=== PATIENT | male | born 1950 | race Caucasian/White ===

== ENCOUNTER 2018-09-19 22:21 | Emergency (ER) | payer MEDICARE ==
[~2018-09-19] VITALS: Ht 188 cm; Wt 90.7 kg
[2018-09-19 22:55] LABS: BASOPHILS ABSOLUTE AUTO 0.05 K/mm3 (0.00-0.23); BASOPHILS PERCENT AUTO 0 % (0-2); EOSINOPHILS PERCENT AUTO 1 % (0-6); Hematocrit 35.1 % (37.0-53.0); Hemoglobin 11.8 g/dL (13.5-17.5); IMMATURE GRAN ABSOLUTE AUTO 0.04 K/mm3 (0.00-0.10); IMMATURE GRAN PERCENT AUTO 0 % (0-1); LYMPHOCYTES ABSOLUTE AUTO 4.92 K/mm3 (0.84-5.20); LYMPHOCYTES PERCENT AUTO 33 % (21-46); MONOCYTES ABSOLUTE AUTO 1.48 K/mm3 (0.16-1.47); MONOCYTES PERCENT AUTO 10 % (4-13); Mean Corpuscular HGB 29.6 pg (26.0-34.0); Mean Corpuscular HGB Conc 33.6 g/dL (31.5-36.5); Mean Corpuscular Volume 88 fL (80-100); Mean Platelet Volume 9.6 fL (9.1-12.4); NEUTROPHILS ABSOLUTE AUTO 8.26 K/mm3 (1.96-9.15); NEUTROPHILS PERCENT AUTO 55 % (41-73); Platelet Count 245 K/mm3 (150-400); RDW Coefficient Variation 12.7 % (11.7-14.2); RDW Standard Deviation 41.5 fL (35.1-46.3); Red Blood Cell Count 3.98 M/mm3 (4.30-5.90); White Blood Cell Count 14.95 K/mm3 (4.00-11.30)
[2018-09-19 23:28] LABS: Albumin, Blood 4.4 g/dL (3.4-5.0); Albumin/Globulin Ratio 1.4 (0.8-1.8); Bilirubin, Total 0.4 mg/dL (0.1-1.0); Bun/Creatinine Ratio 34.8 (12.0-20.0); Calcium, Blood 8.9 mg/dL (8.5-10.1); Creatinine, Blood 1.78 mg/dL (0.60-1.20); Globulin, Blood 3.1 g/dL (2.2-4.0); Potassium, Blood 4.6 mmol/L (3.5-5.5); Total Protein, Blood 7.5 g/dL (6.4-8.2)
[2018-09-20 02:05] LABS: Calcium, Ionized (POC) 1.16 mmol/L (1.10-1.46); Chloride (POC) 106 mmol/L (98-108); Creatinine (POC) 1.7 mg/dL (0.8-1.3); Glucose (ISTAT POC) 115 mg/dL (70-99); Hemoglobin (POC) 10.2 g/dL (13.5-17.5); Potassium (POC) 4.2 mmol/L (3.5-5.5); Sodium (POC) 138 mmol/L (135-148); Total CO2 (POC) 20 mmol/L (21-32)
[2018-09-20 02:14] LABS: Source, Urine Catheter
[2018-09-20 02:17] LABS: Appearance, Urine Clear (Clear); Bilirubin, Urine Neg (Neg); Blood, Urine Neg (Neg); Color, Urine Amber (P-Yellow); Glucose Qualitative, Urine Neg (Neg); Ketones, Urine 1+ (Neg); Leukocyte Esterase, Urine 1+ (Neg); Nitrite, Urine Neg (Neg); Protein, Urine 1+ (Neg); Urobilinogen, Urine NORM (Normal)
[2018-09-20 02:25] LABS: Bacteria Mod /hpf; Red Blood Cells, Urine 0-2 /hpf (0-2); Squamous Epithelial Cells Rare /hpf (Few)
[2018-09-20] MEDS ORDERED: GLIP10 (02:50)
[2018-09-20] MEDS ORDERED: METF500 (02:50)
[2018-09-20 03:41] LABS: U Amphetamine Screen DETECTED; U Barbituate Screen Not Detected; U Benzodiazapine Screen Not Detected; U Buprenorphine Screen Not Detected; U Cannabinoids Screen DETECTED; U Cocaine Screen Not Detected; U Methadone Screen Not Detected; U Methamphetamine Screen DETECTED; U Opiates Screen DETECTED; U Oxycodone Screen Not Detected; U Phencyclidine Screen Not Detected; U Propoxyphene Screen Not Detected
== END 2018-09-20 04:15 | disposition home or self-care (01) ==
LOC: ER 22:21
PROVIDERS: Emergency Medicine
DX: E11.649 Type 2 diabetes mellitus with hypoglycemia without coma (principal); R41.82 Altered mental status, unspecified; F19.10 Other psychoactive substance abuse, uncomplicated
CPT/HCPCS: 51701; 80047; 80053; 81001; 82947; 85014; 85025; 87086; 96361-59; 96374-59; 99285-25; J7030

== ENCOUNTER 2020-12-09 10:19 | Emergency (ER) | payer OTHER, MEDICARE ==
[~2020-12-09] VITALS: Ht 190.5 cm; Wt 95.2 kg
[~2020-12-09 10:19] MED LIST: GLIP10; METF500
[2020-12-09] MEDS ORDERED: BUPR75 (10:45)
[2020-12-09] MEDS ORDERED: LIDOCAINE1 EAC1 (10:45)
[2020-12-09] MEDS ORDERED: PREG25 (10:45)
[2020-12-09] MEDS ORDERED: ATOR20 (10:45)
[2020-12-09] MEDS ORDERED: HYDR1TAB94 (10:45)
== END 2020-12-09 11:30 | disposition home or self-care (01) ==
LOC: ER 10:19
DX: S01.81XA Laceration without foreign body of other part of head, initial encounter (principal); E11.9 Type 2 diabetes mellitus without complications; E78.5 Hyperlipidemia, unspecified; Z79.899 Other long term (current) drug therapy; W01.10XA Fall on same level from slipping, tripping and stumbling with subsequent striking against unspecified object, initial encounter; Y92.814 Boat as the place of occurrence of the external cause
CPT/HCPCS: 12015; 99282-25

== ENCOUNTER 2021-07-11 11:15 | Inpatient (IN) | payer OTHER, MEDICARE ==
[~2021-07-11] VITALS: Ht 190.5 cm; Wt 109.3 kg
[~2021-07-11 11:15] MED LIST changes: +ATOR20; +BUPR75 PO; +HYDR1TAB94; +LIDOCAINE1 EAC1 TOP; +PREG25 PO
[2021-07-11 11:55] LABS: BASOPHILS ABSOLUTE AUTO 0.04 K/mm3 (0.00-0.23); BASOPHILS PERCENT AUTO 0 % (0-2); EOSINOPHILS ABSOLUTE AUTO 0.12 K/mm3 (0.00-0.68); EOSINOPHILS PERCENT AUTO 1 % (0-6); IMMATURE GRAN ABSOLUTE AUTO 0.07 K/mm3 (0.00-0.10); IMMATURE GRAN PERCENT AUTO 1 % (0-1); LYMPHOCYTES ABSOLUTE AUTO 2.21 K/mm3 (0.84-5.20); LYMPHOCYTES PERCENT AUTO 24 % (21-46); MONOCYTES ABSOLUTE AUTO 0.79 K/mm3 (0.16-1.47); MONOCYTES PERCENT AUTO 9 % (4-13); Mean Corpuscular HGB 27.6 pg (26.0-34.0); Mean Corpuscular HGB Conc 32.3 g/dL (31.5-36.5); Mean Corpuscular Volume 86 fL (80-100); Mean Platelet Volume 9.9 fL (9.1-12.4); NEUTROPHILS ABSOLUTE AUTO 5.92 K/mm3 (1.96-9.15); NEUTROPHILS PERCENT AUTO 65 % (41-73); Platelet Count 199 K/mm3 (150-400); RDW Coefficient Variation 13.7 % (11.7-14.2); RDW Standard Deviation 43.2 fL (35.1-46.3); Red Blood Cell Count 3.62 M/mm3 (4.30-5.90); White Blood Cell Count 9.15 K/mm3 (4.00-11.30)
[2021-07-11 12:06] LABS: Albumin, Blood 3.2 g/dL (3.4-5.0); Bilirubin, Total 0.4 mg/dL (0.1-1.0); Bun/Creatinine Ratio 24.7 (12.0-20.0); Calcium, Blood 7.9 mg/dL (8.5-10.1); Creatinine, Blood 2.51 mg/dL (0.60-1.20); Globulin, Blood 3.2 g/dL (2.2-4.0); Total Protein, Blood 6.4 g/dL (6.4-8.2)
[2021-07-11] MEDS ORDERED: GLIP2.5ER PO (16:28)
[2021-07-11] MEDS ORDERED: ATOR40TA PO (16:28)
[2021-07-11] MEDS ORDERED: LISI5 PO (16:29)
[2021-07-11] MEDS ORDERED: METFORMIN HCL500 M2 PO (16:29)
[2021-07-11 22:47] LABS: U Amphetamine Screen Not Detected; U Barbituate Screen Not Detected; U Benzodiazapine Screen Not Detected; U Buprenorphine Screen Not Detected; U Cannabinoids Screen Not Detected; U Cocaine Screen Not Detected; U Methadone Screen Not Detected; U Methamphetamine Screen Not Detected; U Opiates Screen Not Detected; U Phencyclidine Screen Not Detected
[2021-07-11 22:48] LABS: U Oxycodone Screen Not Detected; U Propoxyphene Screen Not Detected
--- NOTE | 2021-07-12 05:02 | NUR ---
PATIENT ARRIVED FROM THE ED AND GAIT WAS UNSTEADY AMBULATING FROM STRETCHER TO BED. PATIENT USES A CANE AT BASELINE. A&O X2 PERSON AND PLACE. APPEARS TO HAVA SOME WEAKNESS IN THE LLE. PATIENT HAD NO APPARENT DIFFICULTY SWALLOWING. ABLE TO USE URINAL TO VOID UNASSISTED. AWAKENED THIS AM CONFUSED TO WHERE HE WAS BUT WAS EASILY REORIENTED. VITALS REVIEWED. CALL LIGHT IN REACH AND BED ALARM SET.
[2021-07-12 05:16] LABS: BASOPHILS ABSOLUTE AUTO 0.05 K/mm3 (0.00-0.23); BASOPHILS PERCENT AUTO 1 % (0-2); EOSINOPHILS ABSOLUTE AUTO 0.25 K/mm3 (0.00-0.68); EOSINOPHILS PERCENT AUTO 3 % (0-6); Hematocrit 30.8 % (37.0-53.0); Hemoglobin 9.9 g/dL (13.5-17.5); IMMATURE GRAN ABSOLUTE AUTO 0.09 K/mm3 (0.00-0.10); IMMATURE GRAN PERCENT AUTO 1 % (0-1); LYMPHOCYTES PERCENT AUTO 36 % (21-46); MONOCYTES ABSOLUTE AUTO 0.82 K/mm3 (0.16-1.47); MONOCYTES PERCENT AUTO 9 % (4-13); Mean Corpuscular HGB 27.8 pg (26.0-34.0); Mean Corpuscular HGB Conc 32.1 g/dL (31.5-36.5); Mean Corpuscular Volume 87 fL (80-100); NEUTROPHILS ABSOLUTE AUTO 4.57 K/mm3 (1.96-9.15); NEUTROPHILS PERCENT AUTO 50 % (41-73); Platelet Count 210 K/mm3 (150-400); RDW Coefficient Variation 13.6 % (11.7-14.2); RDW Standard Deviation 43.3 fL (35.1-46.3); Red Blood Cell Count 3.56 M/mm3 (4.30-5.90); White Blood Cell Count 9.08 K/mm3 (4.00-11.30)
[2021-07-12 05:35] LABS: Anion Gap 7 mmol/L (6-16); Blood Urea Nitrogen 44 mg/dL (8-24); Bun/Creatinine Ratio 27.5 (12.0-20.0); CHOL/HDL RATIO 3.2; CO2, Blood 23 mmol/L (21-32); Chloride, Blood 116 mmol/L (98-108); Cholesterol 111 mg/dL (50-200); Glomerular Filtration Rate 43 (60-); Glucose, Blood 113 mg/dL (70-99); HDL Cholesterol 35 mg/dL (>39); LDL/HDL RATIO 1.5; Low Density Lipoprotein Chol 54 mg/dL (0-110); Potassium, Blood 5.2 mmol/L (3.5-5.5); Sodium, Blood 146 mmol/L (136-145); Triglycerides 110 mg/dL (30-160); Very Low Density Lipoprot Chol 22 mg/dL (6-32)
--- NOTE | 2021-07-12 17:14 | NUR ---
SHIFT SUMMARY; PATIENT VERY BUSY DURING DAY. UP AND DOWN OUT OF BED NUMEROUS TIMES. HE IS UNSTEADY ON HIS FEET AND VERY IMPULSIVE. BED ALARM IN PLACE. PATIENT AT END OF SHIFT IS USING CALL LIGHT FOR WANTS OR NEEDS. PER PATIENT HE DOES NOT WANT TO GO TO IRU. BUT DOES AGREE TO GO TO SNF. PATIENT IS TREATED WITH INSULIN FOR ELEVATED BLOOD GLUCOSE READINGS TODAY. HE DOES HAVE CBG OF 120 THIS AFTERNOON AND IS FEELING SWEATY AND DIZZY. HE IS PROVIDED WITH CHEESE CRACKERS AND JUICE. PATIENT EXPRESSES HE IS FEELING BETTER AFTER EATING PROTEIN PATIENT VITAL SIGNS ARE WITHIN NORMAL LIMITS. HE TAKES HIS PILLS WHOLE WITH WATER AND IS AO X 4. TELE MONITOR SHOWS 87 AND NSR. NO SKIN ISSUES. WILL CONTINUE TO MONITOR THIS PAITENT CLOSELY FOR ANY WANTS OR NEEDS UNTIL HAND OFF AT SHIFT CHANGE.
--- NOTE | 2021-07-13 10:31 | NUR ---
PER HAVE PATIENT CALL HIS BROTHER TO SEE IF HE CAN STAY WITH THE PATIENT FOR A FEW DAYS IF HE IS DC'D TO HOME. GIULIA SAYS HE CALLS AND THAT BROTHER NOT ABLE TO PICK HIM UP IF HE FALLS BUT WILL BRING HIM GROCERIES AND CHECK ON HIM. TO DC HOME WITH HOME HEALTH. INDIRA MACIAS RN CARE MANAGER NOTIFIED AND SHE WILL MAKE HOME HEALTH ARRANGEMENTS AND IMM. OTF SANCHEZ RN
[2021-07-13 10:59] LABS: Anion Gap 6 mmol/L (6-16); Blood Urea Nitrogen 25 mg/dL (8-24); Bun/Creatinine Ratio 21.9 (12.0-20.0); CO2, Blood 25 mmol/L (21-32); Calcium, Blood 8.8 mg/dL (8.5-10.1); Chloride, Blood 111 mmol/L (98-108); Creatinine, Blood 1.14 mg/dL (0.60-1.20); Glomerular Filtration Rate >60 (60-); Glucose, Blood 291 mg/dL (70-99); Potassium, Blood 4.7 mmol/L (3.5-5.5); Sodium, Blood 142 mmol/L (136-145)
[2021-07-13] MEDS ORDERED: ASPI325 PO (11:21)
[2021-07-13] MEDS ORDERED: SENN187 PO (11:22)
--- NOTE | 2021-07-13 19:09 | NUR ---
PATIENT IS DISCHARGED TO HOME. PATITENTS FRIEND COMES TO TAKE HIM HOME AND WILL MAKE SURE BROTHER IS NOTIFIED THAT PATIENT IS THERE. PATIENT IS ABLE TO VERBALIZE DC INSTRUCTIONS AND WILL FOLLOW UP WITH AT CT. PATIENT ABLE TO DRESS HIMSELF AND IS SITTING ON EDGE OF BED WAITING WHEN FRIEND ARRIVED TO ROOM. DEMETRA DELIVERED WALKER TO ROOM FOR THIS PATIENT AND PATIENT DEMONSTRATES PROPER USE OF WALKER FOR THIS RN. TAHIRA PULIDOA2 NATHALIA PLATT TO LOBBY VIA WHEEL CHAIR. MEDICATIONS WERE FAXED TO [facility] FOR SUBEDITOR TODAY. OTF SANCHEZ RN
== END 2021-07-13 16:30 | disposition home health service (06) | DRG 65 ==
LOC: ER 11:15 → MEDS 11:16
PROVIDERS: Internal Medicine; Physician Assistant; ADMIT Internal Medicine
DX: I63.81 Other cerebral infarction due to occlusion or stenosis of small artery (principal); N17.9 Acute kidney failure, unspecified; E78.5 Hyperlipidemia, unspecified; G89.29 Other chronic pain; M54.9 Dorsalgia, unspecified; F32.A Depression, unspecified; Z96.611 Presence of right artificial shoulder joint; Z96.653 Presence of artificial knee joint, bilateral; N18.30 Chronic kidney disease, stage 3 unspecified; R29.6 Repeated falls; E11.22 Type 2 diabetes mellitus with diabetic chronic kidney disease; E86.0 Dehydration; I12.9 Hypertensive chronic kidney disease with stage 1 through stage 4 chronic kidney disease, or unspecified chronic kidney disease; Z96.612 Presence of left artificial shoulder joint; Z79.84 Long term (current) use of oral hypoglycemic drugs; Z79.899 Other long term (current) drug therapy
CPT/HCPCS: 36415; 70450; 80048; 80053; 80061; 82947; 83036; 85025; 93005; 93010; 93306; 93880; 96372; 97110; 97112; 97162; 97165; 97530; 99285-25; A9270; G0378; J1650; J7030; J7120

== ENCOUNTER 2023-03-07 06:17 | Inpatient (IN) | payer OTHER, MEDICARE ==
[2023-03-07] VITALS (17 sets, daily range): BP systolic 112–169; BP diastolic 60–84
[~2023-03-07] VITALS: Ht 188 cm; Wt 95.6 kg
[~2023-03-07 06:17] MED LIST changes: +ASPI325 PO; +ATOR40TA PO; -BUPR75 PO; +BUPROPION XL150 M1 PO; +CELE100 PO; +CYCL10 PO; +GLIP2.5ER PO; +LISI5 PO; +LORA10ER PO; +METF500C PO; +SENN187 PO; +TAMS.4ER PO
--- NOTE | 2023-03-07 07:42 | NUR ---
DAY SURGERY NOTE PT A&OX4, BREATHING RA, NO ACUTE CONCERNS, CALM. GLASSES REMOVED AND SENT TO PACU PRIOR TO SURGERY, ALL OTHER BELONGINGS STORES BELOW [facility]. Ambulatory in Day Surgery Patient confirms NPO status and agrees with scheduled surgery. Pre-Op teaching done. Pt verbalizes understanding.
--- NOTE | 2023-03-07 12:36 | NUR ---
POST OP PT ARRIVED TO UNIT ALERT AND ORIENTED. POST OP VS STABLE AND IN PROGRESS. ON 2L VIA NC AND PLANNING TO WEAN TOLERATED. ENCOURAGING TO COUGH AND DEEP BREATHE. PT DENIES PAIN TO LEFT SHOULDER. LEFT SHOULDER EXOFIN DRESSING APPEARS CDI. IMMOBILIZER IN PLACE WITH POLAR PACK TO SHOULDER. PT SITTING UP IN BED EATING LUNCH. ORIENTED TO ROOM AND CALL LIGHT.
--- NOTE | 2023-03-07 15:21 | NUR ---
NOTIFIED CARE MANAGEMENT THAT PT PREFERS TO DC TO THE CT SNF IF AT ALL POSSIBLE.
--- NOTE | 2023-03-07 16:35 | NUR ---
SHIFT SUMMARY NO ACUTE CHANGES SINCE ARRIVING POST OP. 1 ROXICODONE + SCHEDULED TORADOL AND TYLENOL FOR PAIN. PT STILL REPORTS SOME NUMBNESS TO L FINGERS RELATED TO NERVE BLOCK, BUT ABLE TO WIGGLE FINGERS AND FLEX HAND. LEFT SHOULDER IN IMMOBILIZER + POLAR PACK IN PLACE. DRESSING REMAINS CDI. PT WORKED WITH PHYSICAL THERAPY. UP TO CHAIR AND AMBULATION WITH MADELINE WALKER + GB. USING URINAL TO VOID. CALL LIGHT WITHIN REACH.
[2023-03-08 04:03] VITALS: BP 132/63
[2023-03-08 04:29] LABS: BASOPHILS ABSOLUTE AUTO 0.02 K/mm3 (0.00-0.23); BASOPHILS PERCENT AUTO 0 % (0-2); EOSINOPHILS ABSOLUTE AUTO 0.03 K/mm3 (0.00-0.68); EOSINOPHILS PERCENT AUTO 0 % (0-6); Hematocrit 31.3 % (37.0-53.0); Hemoglobin 10.6 g/dL (13.5-17.5); IMMATURE GRAN ABSOLUTE AUTO 0.04 K/mm3 (0.00-0.10); IMMATURE GRAN PERCENT AUTO 0 % (0-1); LYMPHOCYTES PERCENT AUTO 23 % (21-46); MONOCYTES ABSOLUTE AUTO 1.25 K/mm3 (0.16-1.47); MONOCYTES PERCENT AUTO 11 % (4-13); Mean Corpuscular HGB 29.4 pg (26.0-34.0); Mean Corpuscular HGB Conc 33.9 g/dL (31.5-36.5); Mean Corpuscular Volume 87 fL (80-100); Mean Platelet Volume 9.8 fL (9.1-12.4); NEUTROPHILS ABSOLUTE AUTO 7.37 K/mm3 (1.96-9.15); NEUTROPHILS PERCENT AUTO 65 % (41-73); Platelet Count 150 K/mm3 (150-400); RDW Coefficient Variation 12.9 % (11.7-14.2); RDW Standard Deviation 40.9 fL (35.1-46.3); Red Blood Cell Count 3.61 M/mm3 (4.30-5.90); White Blood Cell Count 11.31 K/mm3 (4.00-11.30)
[2023-03-08 05:03] LABS: Bun/Creatinine Ratio 24.8 (12.0-20.0); Calcium, Blood 8.3 mg/dL (8.5-10.1); Creatinine, Blood 1.45 mg/dL (0.60-1.20); Magnesium, Blood 1.9 mg/dL (1.6-2.4); Potassium, Blood 4.7 mmol/L (3.5-5.5)
[2023-03-08 07:08] VITALS: BP 130/57
--- NOTE | 2023-03-08 08:18 | NUR ---
SUMMARY PT REPORTS IMPROVED SENSATION IN LUE,HOWEVER STILL NOT FULLY INTACT. ABLE TO WIGGLE FINGERS MORE FREELY AND QUICKER REPONSE.WHEN PT MOVING WRISTS,NOT APPEARING COORDINATED.RADIAL PULSES REMAIN INTACT.
[2023-03-08 14:32] VITALS: BP 139/57
--- NOTE | 2023-03-08 17:05 | NUR ---
SUMMARY POD 1 REVERSE TOTAL SHOULDER ARTHROPLASTY, PT REPORTS MINIMAL PAIN, REPORTS HAVING SOME NUMBNESS AND TIGLING ON L ARM DOWN TO INDEX FINGER, STATES NUMBNESS AND TINGLING HAS IMPROVED THIS AFTERNOON, WORKED WITH PHYS TX TODAY, 1 PERSON ASSIST W/ MADELINE WALKER, L ARM IN SLING, 3 SEC CAP REFILL ON L FINGERS, REPORTS HAVING ADEQUATE PAIN CONTROL WITH PO PAIN MEDS, NO ACUTE CHANGES THIS SHIFT.
[2023-03-08 19:38] VITALS: BP 155/66
[2023-03-09 04:15] VITALS: BP 177/73
[2023-03-09 07:24] VITALS: BP 155/73
--- NOTE | 2023-03-09 08:27 | NUR ---
SUMMARY PT MED PO FOR PAIN, AMBULATORY WITH SBA.VOIDING.
[2023-03-09 14:10] VITALS: BP 155/59
--- NOTE | 2023-03-09 17:07 | NUR ---
SHIFT SUMMARY PT A&OX4, VSS/RA, CBGS CNI, MATILDA PO, VOIDING/URINAL, PAIN MGMT WITH OXY & TYLENOL, AMB W/HEMIWALKER/UP TO CHAIR. POD2 REV TOTAL SHOULDER ARTH, DRESSING CDI, IMMOBILIZER ON, NWB, WIGGLES FINGERS, CAP REFILL WNL, POLAR GILMAR ON. WILL REPORT TO ONCOMING NOC MOISES.
[2023-03-09 19:19] VITALS: BP 167/66
[2023-03-10 03:10] VITALS: BP 156/66
[2023-03-10 07:15] VITALS: BP 143/79
--- NOTE | 2023-03-10 08:18 | NUR ---
POD 3 S/P L TSA. PT VSS T/O NIGHT. DRESSING CDI. PT DENIED N/T, CAP REFILL WNL. PAIN MGD PER EMAR W/REP RELIEF. PT MATILDA PO, DENIED N/V, IS VOIDING URINE W/O DIFFICULTY. PLAN TO MOBILIZE W/PT WHILE AWAITING DC PLANNING.
[2023-03-10 14:15] VITALS: BP 132/61
--- NOTE | 2023-03-10 19:13 | NUR ---
SHIFT SUMMARY PT POD 3 L TSA. AQUACEL DRESSING C/D/I, SLING IN PLACE. PT WORKED WITH PT, PAIN WELL MANAGED WITH ORAL PAIN MEDICATION. WORK WITH PT TOMORROW TO DETERMINE IF PT DC HOME OR TO SNF
[2023-03-10 19:51] VITALS: BP 165/66
[2023-03-11 02:15] VITALS: BP 150/66
--- NOTE | 2023-03-11 04:44 | NUR ---
SHIFT SUMMARY POD4 TOTAL SHOULDER. PRINEO DRESSING IS C/D/I. PT REPORTS FULL SENSATION IN LUE, ABLE TO MOVE HAND W/O DIFFICULTY. STRONG PULSES NOTED, BRISK CAP REFILL. SLING REMAINS IN PLACE AND EXTREMITY IS NWB. VSS. PT MEDICATED FOR PAIN WTIH OXY AND TYLENOL WITH GOOD RESULTS. UTILIZED CRYO MACHINE T/O THE NIGHT FOR PAIN CONTROL. PT VOIDING INTO URINAL W/O DIFFICULTY. NO ACUTE EVENTS NOTED. PLAN FOR PT TO BE EVALUATED AGAIN TODAY AND EITHER [facility]GE TO [facility] OR HOME.
[2023-03-11 07:24] VITALS: BP 133/63
--- NOTE | 2023-03-11 09:30 | NUR ---
03/11/23 0930 Danyelle Aguilera VERIFICATIONS: EDIT CHART.
--- NOTE | 2023-03-11 11:31 | NUR ---
Pt. is awake in a recliner and welcomes my visit, Pt. is pleasant, and verbalizes that he is part of a local [facility] program as well as an [employer] . Listened with empathy and interest and in the process we established rapport. Pt. verbalized hope that he might be discharged to the [place] recovery facility. Prayed with Pt. Pt. verbalized gratitude for the spiritual care visit and also request that I contact the head of his recovery program, which I did.
[2023-03-11 14:56] VITALS: BP 128/64
--- NOTE | 2023-03-11 17:49 | NUR ---
SHIFT SUMMARY POD4 L R REVERSE TSA, A/OX4, VSS, TOLERATING PO, AMBULATING WITH MINIMAL ASSISTANCE IN THE HALLS, PAIN WELL MANAGED. NO ACUTE EVENTS THIS SHIFT, CALL LIGHT IN REACH,
[2023-03-11 19:21] VITALS: BP 140/63
[2023-03-12 03:39] VITALS: BP 120/58
[2023-03-12 03:40] VITALS: BP 120/58
--- NOTE | 2023-03-12 04:59 | NUR ---
SHIFT SUMMARY POD 5 L REVERSE SHOULDER REPAIR. NO ACUTE CHANGES OVERNIGHT. PT INCISION WITH PRINEO DRESSING C/D/I; SLING AND POLAR PACK IN PLACE. PT PAIN CONTROLLED PER EMAR. PT AMBULATING WITH MADELINE WALKER AND USINE URINAL INDEPENDENTLY. TOLERATING ORALS. ANTICIPATED D/C WITH APPROVAL FROM [facility]. BED IN LOWEST POSITION, CALL LIGHT WITHIN REACH, WILL REPORT TO DAY NURSE.
[2023-03-12 07:05] VITALS: BP 126/59
[2023-03-12 14:36] VITALS: BP 126/54
--- NOTE | 2023-03-12 17:16 | NUR ---
SHIFT SUMMARY POD5 L REVERSE TSA, A/OX4, VSS, TOLERATING PO, AMBULATING WITH MINIMAL ASSISTANCE, PAIN WELL MANAGED, VOIDING WELL. CURRENTLY AWAITING [facility] PLACEMENT DUE TO NO ASSISTANCE AT HOME. PLEASANT AND COOPERATIVE WITH ALL NURSING CARE, CALLS APPROPRIATELY. CALL LIGHT IN REACH.
[2023-03-12 20:13] VITALS: BP 147/81
[2023-03-12 20:55] LABS: SARS-Cov-2 (COVID-19) PCR, MMC NEGATIVE (NEGATIVE)
--- NOTE | 2023-03-13 04:36 | NUR ---
SHIFT SUMMARY POD 6 REVERSE SHOULDER REPAIR. NO ACUTE CHANGES OVERNIGHT. INCISION C/D/I WITH PRINEO DRESSING; SLING/POLAR PACK IN PLACE. PT REPORTS PAIN WELL CONTROLLED. AMBULATES INDEPENDENTLY WITH MADELINE WALKER, USES URINAL INDEPENDENTLY. TOLERATING ORALS. AMTICIPATED D/C IN AM TO [facility] FAC[facility]. BED IN LOWEST POSITION, CALL LIGHT IN REACH, WILL REPORT TO DAY NURSE.
[2023-03-13 05:07] VITALS: BP 140/61
[2023-03-13 07:34] VITALS: BP 132/62
--- NOTE | 2023-03-13 12:22 | NUR ---
REPORT CALLED TO ELVIA AT THE [facility] [phone] EXT [phone].
[2023-03-13 12:35] VITALS: BP 126/54
--- NOTE | 2023-03-13 13:13 | NUR ---
DC TO [facility] STEVIES w/ PT.
== END 2023-03-13 13:11 | DRG 483 ==
LOC: SURS 06:17
PROVIDERS: ADMIT Orthopaedic Surgery
PROC: 0RRK0JZ Replacement of Left Shoulder Joint with Synthetic Substitute, Open Approach (ICD-10-PCS; principal; 2023-03-07 07:30)
DX: M75.122 Complete rotator cuff tear or rupture of left shoulder, not specified as traumatic (principal); I10 Essential (primary) hypertension; E78.5 Hyperlipidemia, unspecified; E11.9 Type 2 diabetes mellitus without complications; Z86.73 Personal history of transient ischemic attack (TIA), and cerebral infarction without residual deficits; F15.10 Other stimulant abuse, uncomplicated; G89.29 Other chronic pain; R41.3 Other amnesia; M54.50 Low back pain, unspecified; F32.A Depression, unspecified; H26.9 Unspecified cataract; D64.9 Anemia, unspecified; K21.9 Gastro-esophageal reflux disease without esophagitis; F10.90 Alcohol use, unspecified, uncomplicated; Z96.653 Presence of artificial knee joint, bilateral; Z20.822 Contact with and (suspected) exposure to COVID-19; Z88.8 Allergy status to other drugs, medicaments and biological substances; Z87.891 Personal history of nicotine dependence; Z86.19 Personal history of other infectious and parasitic diseases; Z98.890 Other specified postprocedural states; Z79.82 Long term (current) use of aspirin; Z79.811 Long term (current) use of aromatase inhibitors; Z79.84 Long term (current) use of oral hypoglycemic drugs; Z79.899 Other long term (current) drug therapy
CPT/HCPCS: 36415; 73030; 80048; 82947; 83735; 85025; 97110; 97116; 97162; 97166; 97530; 97535; A9270; C1713; C1776; J0690; J1100; J1815; J1885; J2250; J2371; J2405; J2704; J3010; J7120; U0002

== ENCOUNTER 2023-04-20 10:44 | Emergency (ER) | payer OTHER ==
[~2023-04-20] VITALS: Ht 190.5 cm; Wt 94.3 kg
[2023-04-20 13:40] VITALS: BP 111/61
[2023-04-20] MEDS ORDERED: HYDR1TAB94 PO (13:45)
== END 2023-04-20 13:54 | disposition home or self-care (01) ==
LOC: ER 10:44
DX: S43.402A Unspecified sprain of left shoulder joint, initial encounter (principal); S00.81XA Abrasion of other part of head, initial encounter; W18.30XA Fall on same level, unspecified, initial encounter; Z79.899 Other long term (current) drug therapy; Z79.84 Long term (current) use of oral hypoglycemic drugs; Z79.82 Long term (current) use of aspirin; I11.0 Hypertensive heart disease with heart failure; I50.9 Heart failure, unspecified; E11.9 Type 2 diabetes mellitus without complications; E78.5 Hyperlipidemia, unspecified; Z87.891 Personal history of nicotine dependence
CPT/HCPCS: 70450; 72125; 73030; A9270

== ENCOUNTER 2024-02-24 12:25 | Day surgery (SDC) | payer OTHER ==
[~2024-02-24] VITALS: Ht 190.5 cm; Wt 99.8 kg
[~2024-02-24 12:25] MED LIST changes: +Aspir 8181 MG PO; +FLUTICASONE; +HYDR1TAB94 PO; +SILD50TA PO
[2024-02-24] MEDS ORDERED: DICLOFENAC SOD100 GM (14:36)
[2024-02-24] MEDS ORDERED: ASCO500 PO (14:37)
[2024-02-24] MEDS ORDERED: Budeprion Xl300 MG PO (14:38)
[2024-02-24] MEDS ORDERED: MELATONIN5 M1 PO (14:40)
[2024-02-24] MEDS ORDERED: TRAZ50 PO (14:45)
[2024-02-24] MEDS ORDERED: NICOTINE PATCH (14:45)
[2024-02-24] MEDS ORDERED: PSYLLIUM POWDER (14:46)
[2024-02-24] MEDS ORDERED: Midazolam HCl 1MG / ML 2ML Vial ONE (14:47)
[2024-02-24] MEDS ORDERED: FentaNYL Citrate 50 MCG/ML 2 ML Injection ONE (14:47)
[2024-02-24] MEDS ORDERED: NS 500 ML IV ONE (15:06)
[2024-02-24] MEDS ORDERED: PROPARACAINE RIGHTEYE ONE (15:35)
[2024-02-24] MEDS ORDERED: [UNRECOGNIZED DRUG - OTHER] RIGHTEYE ONE (15:35)
[2024-02-24] MEDS ORDERED: PHENYLEPHRINE RIGHTEYE ONE (15:35)
[2024-02-24] MEDS ORDERED: Povidone-Iodine 450 DROP/30 ML Solution RIGHTEYE ONE (15:43)
[2024-02-24] MEDS ORDERED: Moxifloxacin HCL 0.5 MG/0.1 ML 0.4MLSYR RIGHTEYE ONE (15:44)
[2024-02-24] MEDS ORDERED: Lidocaine HCl 1% 30 ML SDV XX ONE (15:44)
[2024-02-24] MEDS ORDERED: BSS PLUS/EPINEPHRINE IRRIGATION SOLUTION 500 ML RIGHTEYE ONE (15:44)
--- NOTE | 2024-02-24 16:56 | NUR ---
02/24/24 1656 Wolfgang Seth PT VOIDED PRIOR TO D/C WITHOUT DIFFICULTY.
[2024-02-24 16:57] VITALS: BP 112/61
== END 2024-02-24 16:37 | disposition home or self-care (01) ==
LOC: ORSCSDS 12:25
PROVIDERS: Student in an Organized Health Care Education/Training Program
PROC: 08RJ3JZ Replacement of Right Lens with Synthetic Substitute, Percutaneous Approach (ICD-10-PCS; principal; 2024-02-24 15:00)
DX: E11.36 Type 2 diabetes mellitus with diabetic cataract (principal); H25.811 Combined forms of age-related cataract, right eye; I10 Essential (primary) hypertension; F17.210 Nicotine dependence, cigarettes, uncomplicated; Z86.73 Personal history of transient ischemic attack (TIA), and cerebral infarction without residual deficits; Z79.82 Long term (current) use of aspirin; Z79.84 Long term (current) use of oral hypoglycemic drugs; Z79.899 Other long term (current) drug therapy
CPT/HCPCS: 82947; J2250; J3010; V2632

== ENCOUNTER 2025-01-03 09:53 | Inpatient (IN) | payer OTHER ==
[2025-01-03] VITALS (14 sets, daily range): BP systolic 152–190; BP diastolic 61–98
[~2025-01-03] VITALS: Ht 190.5 cm; Wt 103.9 kg
[~2025-01-03 09:53] MED LIST changes: +ASCO500 PO; +Budeprion Xl300 MG PO; +DICLOFENAC SOD100 GM; -GLIP2.5ER PO; +GLIP5ER PO; +HYDROCODONE-AC1 EA19 PO; +MELATONIN5 M1 PO; +NICOTINE PATCH; +OXYC5 PO; +PREDNISOLO15 MG/5 ML; +PREG150 PO; -PREG25 PO; +PSYLLIUM POWDER; +TRAZ50 PO
[2025-01-03] MEDS ORDERED: CeFAZolin Sodium 2,000 MG in NS 100 ML IV SCH ×2 (11:10→23:00)
[2025-01-03] MEDS ORDERED: Tranexamic Acid 100 ML IV SCH ×2 (11:10→18:15)
[2025-01-03] MEDS ORDERED: Chlorhexidine Mouth Care 15 ML UDC MT SCH (11:10)
--- NOTE | 2025-01-03 13:13 | NUR ---
Ambulatory in Day Surgery. History, Chart, Medications and Allergies reviewed before start of procedure. Lungs clear T/O to Auscultation. Patient confirms NPO status and agrees with scheduled surgery. Pre-Op teaching done. Pt verbalizes understanding. Patient States Post-Procedure ride home has been arranged. PT BELONGINGS PLACED UNDERNEATH GURNEY FOR SAFEKEEPING. PT GLASSES TAKEN TO PACU FOR SAFEKEEPING.
[2025-01-03] MEDS ORDERED: Ropivacaine 0.5% HCL/PF 5 MG/ML 30ML Vial ONE (13:31)
[2025-01-03] MEDS ORDERED: Dexamethasone Sod Phos 10 MG/ML 1ML VIAL ONE (13:31)
[2025-01-03] MEDS ORDERED: EpiNEPhrine 1 MG/1 ML 1ML Vial ONE (13:31)
[2025-01-03] MEDS ORDERED: FentaNYL Citrate 50 MCG/ML 2 ML Injection ONE ×2 (13:34→13:57)
--- NOTE | 2025-01-03 14:25 | NUR ---
1405: DR. COLLINS AT BEDSIDE TO PERFORM INTERSCALENE NERVE BLOCK IN PREOP. 1409: PREMEDS GIVEN BY DR. COLLINS, SEE ANESTHESIA NOTES. 1414: BLOCK TIME START. 1416: BLOCK TIME END. PT ON CONT BP/PULSE OX MONITOR THROUGHOUT PROCEDURE. VSS THROUGHOUT. PT TOLERATED PROCEDURE WELL.
[2025-01-03] MEDS ORDERED: ePHEDrine Sulfate 50 MG/ML 1ML Injection ONE ×2 (15:32→16:04)
[2025-01-03] MEDS ORDERED: Ondansetron HCl 2 MG / ML 2ML Vial IV PRN ×2 (15:55→17:50)
[2025-01-03] MEDS ORDERED: FentaNYL Citrate 50 MCG/ML 2 ML Injection IV PRN ×2 (15:55)
[2025-01-03] MEDS ORDERED: HYDROmorphone HCl/Pf 1MG SYR IV PRN ×3 (15:55→17:40)
[2025-01-03] MEDS ORDERED: Metoclopramide HCl 5MG / ML 2ML Vial IV PRN ×2 (15:55→17:50)
[2025-01-03] MEDS ORDERED: Labetalol HCL 5 MG/ML 4ML Injection (Single Dose) IV PRN (15:55)
[2025-01-03] MEDS ORDERED: Sugammadex Sodium 200 MG/2ML SDV (100 MG/ML) ONE (16:58)
[2025-01-03] MEDS ORDERED: Prochlorperazine Edisylate 10 mg Vial IV PRN (17:45)
[2025-01-03] MEDS ORDERED: Magnesium Hydroxide Conc 10 ML UDC PO PRN (17:50)
--- NOTE | 2025-01-03 18:55 | NUR ---
POST-OP PATIENT TO ROOM @1805 VSS, ON 3L NC BP 190/97 RR 18 PATIENT DENIES PAIN, R HAND AND FINGERS REPORTED TO BE NUMB UNABLE TO WIGGLE R HAND FINGERS. CAP REFIL <3. REPORT TO ZIGZAG MACHINE OPERATOR RN. CALL LIGHT IN REACH AOX4. VOIDING 300 IN URINAL.
[2025-01-03] MEDS ORDERED: Insulin Regular 100 UNIT/ML 10ML Vial SC SCH (21:00)
[2025-01-04] MEDS ORDERED: Ketorolac Tromethamine 15mg Vial IV SCH
[2025-01-04 03:14] VITALS: BP 159/73
--- NOTE | 2025-01-04 04:28 | NUR ---
SHIFT SUMMARY POD1 FOR REVERSE R TOTAL SHOULDER. SENSATION IS VERY SLOWLY RETURNING IN THIS LIMB. PT IS STILL UNABLE TO WIGGLE HIS FINGERS, BUT REPORTS PAIN AND SENSATION AROUND THE OPPERATION SITE. STRONG RADIAL PULSE NOTED. IMMOBILIZER REMAINS IN PLACE. PT MEDICATED FOR PAIN PER EMAR W/ OKAY RESULTS. PT DOES NOT WANT TO TAKE TORADOL HE REPORTS HE HAS CKD 3 AND DOES NOT TAKE NSAIDS AT HOME. REQUIRED X1 DOSE OF IV DILAUDID, PRN SAV, AND SCHEDULED TYLENOL. CRYO REMAINS IN PLACE. PT WAS A VERY HEAVY 2P STAND PIVOT TRANSFER TO A BEDSIDE CHAIR FOR A BEDCHANGE ONCE THROUGHOUT THE NIGHT. PT HAS BEEN ABLE TO VOID INTO A URINAL T/O THE NIGHT, AND UTILIZED A BEDPAN FOR A BM. TOLLERATING PO INTAKE W/O N/V. VSS. PT ENDORSES THAT HE WAS PLANNING ON GOING TO THE [facility], BUT FOUND OUT RIGHT BEFORE HIS SURGERY THAT THIS PLAN HAD FALLEN THROUGH. PT ENDORSES THAT HE WAS TOLD THE HOSPITAL WOULD HELP MANAGE THIS- PLAN TO INFORM ONCOMING NURSE OF THIS FOR D/C PLANNING PURPOSES. PT REPORTS HE CANNOT GO HOME AT THIS TIME AND PROVIDE CARE FOR HIMSELF.
[2025-01-04 05:58] LABS: BASOPHILS ABSOLUTE AUTO 0.02 K/mm3 (0.00-0.23); BASOPHILS PERCENT AUTO 0 % (0-2); EOSINOPHILS ABSOLUTE AUTO 0.01 K/mm3 (0.00-0.68); EOSINOPHILS PERCENT AUTO 0 % (0-6); Hematocrit 33.1 % (37.0-53.0); Hemoglobin 10.9 g/dL (13.5-17.5); IMMATURE GRAN ABSOLUTE AUTO 0.04 K/mm3 (0.00-0.10); IMMATURE GRAN PERCENT AUTO 0 % (0-1); LYMPHOCYTES ABSOLUTE AUTO 2.10 K/mm3 (0.84-5.20); LYMPHOCYTES PERCENT AUTO 17 % (21-46); MONOCYTES ABSOLUTE AUTO 0.99 K/mm3 (0.16-1.47); MONOCYTES PERCENT AUTO 8 % (4-13); Mean Corpuscular HGB Conc 32.9 g/dL (31.5-36.5); Mean Corpuscular Volume 88 fL (80-100); NEUTROPHILS ABSOLUTE AUTO 8.94 K/mm3 (1.96-9.15); NEUTROPHILS PERCENT AUTO 74 % (41-73); NRBC ABSOLUTE 0.00 K/mm3 (0.00-0.02); NRBC Auto 0.0 /100 WBC (0.0-0.2); Platelet Count 159 K/mm3 (150-400); RDW Coefficient Variation 13.1 % (11.7-14.2); RDW Standard Deviation 42.7 fL (35.1-46.3)
[2025-01-04 06:45] LABS: Anion Gap 8.0 mmol/L (3-11); Blood Urea Nitrogen 21.0 mg/dL (8-24); CO2, Blood 25.0 mmol/L (21-32); Calcium, Blood 8.8 mg/dL (8.5-10.1); Chloride, Blood 108.0 mmol/L (98-108); Creatinine, Blood 1.04 mg/dL (0.60-1.20); Glucose, Blood 163.0 mg/dL (70-99); Magnesium, Blood 1.9 mg/dL (1.6-2.4); Potassium, Blood 4.4 mmol/L (3.5-5.5); Sodium, Blood 137.0 mmol/L (136-145)
[2025-01-04 07:26] VITALS: BP 126/64
[2025-01-04] MEDS ORDERED: GlipiZIDE 5 MG TabCR PO SCH (08:00)
[2025-01-04] MEDS ORDERED: MetFORMIN HCl 500 mg PO SCH (08:00)
--- NOTE | 2025-01-04 12:29 | NUR ---
ASSUMPTION ASSUMED CARE OF PT @0700. AXO4. ADAMANT HE WILL BE GOING TO [facility]- PT DENIED PER CAREMANAGEMENT NURSE. FLOOR TECH RN W/ MULTIPLE PHONE CALLS OUT TO [facility]. EDUCATION BEING PROVIDED TO PT REGRDING THESE SERVIVES WELL DC HOME PLAN. PAIN MANAGED TO PT EXPECTATIONS CURRETLY. SHOULDER IMMOBILIZER IN PLACE WITH POLAR PACK TO R SHOULDER, INCISION W/ PRINEO CDI. SHOULDER BLOCK "WORE OFF" PER PT, SENSATION INTACT/FINE MOTOR SKILLS RETURNED. PT AMBULATING WELL WITH HEMIWALKER, WORKED WITH PT/OT. TOLERATING PO INTAKE WELL. VOIDING WELL. VSS AT THIS TIME.
[2025-01-04] MEDS ORDERED: DOCU100 PO (13:01)
[2025-01-04] MEDS ORDERED: ACET500 PO (13:01)
[2025-01-04] MEDS ORDERED: OXYC5 PO (13:02)
--- NOTE | 2025-01-04 14:54 | NUR ---
DC ATTEMPTS PT HAS HAD THIS RN, PACKING ROOM INSPECTOR, AND ORTHO COORDINATOR RN INTO ROM TO DISCUSS DC. PT EDUCATED THAT HE DOES NOT MEET [facility] DUE TO NOT BEING INPATIENT STATUS. PT ON MULTIPLE PHONE CALLS TO HOME CONTACTS ATTEMPTING TO GAIN ACCESS TO [facility]PATIENT [facility] DESPITE DC ORDERS BY [facility] ALLOWING DC W/ HOME HEALTH. PT STATES YESENIA RN AT [facility] SAID TO "NOT LEAVE UNTIL SHE CALLS [facility] SHE IS MAKING PHONE CALLS TO TRY AND GET HIM INTO [facility]." AWAITING PHONE CALL FROM THIS RN. PT TOLERATED PHYSICAL THERAPY WELL TODAY. IS AMBULATING WELL W/OUT ASSIST-USING HEMIWALKER. R ARM REMAINS IN SHOULDER IMMOBILIZER. PT UP IN CHAIR AT THIS TIME.
[2025-01-04 16:21] VITALS: BP 143/80
--- NOTE | 2025-01-04 18:19 | NUR ---
DC'D @0317 SEE PREVIOUS NOTES REGARDING ASSUMPTION & DC ATTEMPTS. NO ACUTE CHANGES POST ASSUMPTION OF CARE. VSS. AXO4. IN SHOULDER IMMOBILIZER. PAIN CONTROLLED TO TOLERABLE LEVEL PER PT. PT WAS RESISTANT TO DC'ING HOME VS [facility] FACILITY DESPITE HOME HEALTH BEING SET UP WITH OTHER RESOURCES MADE AVAILABLE. WITH HELP OF CARE MANAGEMENT RN MAKING MULTIPLE PHONE CALLS TO CO STAFF/FACILITY COORDINATORS, IT WAS SHOWN THAT PT DID NOT MEET CRITERIA FOR ADMISSION TO THESE FACILITIES. PT EDUCATED, AGREEABLE TO DC AT THAT TIME. PT VOIDED WELL. AMBULATED WITH HEMIWALKER. PRINEO DRESSING CDI. PROVIDED POLAR PACK FOR DISCHARGE. PT'S FRIEND PICKED UP PRESCRIPTIONS WELL PROVIDED TRANSPORTATION HOME. DC INSTRUCTIONS GIVEN, PACKET WITH PT ALONG WITH BELONGINGS. PT WHEELED OUT OF ROOM @ 2410.
== END 2025-01-04 16:45 | disposition home or self-care (01) | DRG 483 ==
LOC: ORSCMMR 09:53 → ORD 11:30 → ORSCMMR 11:30 → SURS 18:09 → ORSCMMR 18:10 → SURS 18:10
PROVIDERS: ADMIT Orthopaedic Surgery
PROC: 0RRJ0JZ Replacement of Right Shoulder Joint with Synthetic Substitute, Open Approach (ICD-10-PCS; principal; 2020-01-04)
DX: M12.811 Other specific arthropathies, not elsewhere classified, right shoulder (principal); I10 Essential (primary) hypertension; E78.5 Hyperlipidemia, unspecified; E11.9 Type 2 diabetes mellitus without complications; F32.A Depression, unspecified; Z98.42 Cataract extraction status, left eye; Z98.41 Cataract extraction status, right eye; Z98.890 Other specified postprocedural states; Z96.612 Presence of left artificial shoulder joint; Z87.891 Personal history of nicotine dependence; Z79.82 Long term (current) use of aspirin; Z79.51 Long term (current) use of inhaled steroids; Z79.84 Long term (current) use of oral hypoglycemic drugs; Z79.899 Other long term (current) drug therapy; Z79.891 Long term (current) use of opiate analgesic
CPT/HCPCS: 36415; 73030; 80048; 82947; 83735; 85025; 97110; 97116; 97162; 97165; 97530; 97535; A9270; C1713; C1776; J0171; J0690; J1100; J1171; J1815; J1885; J2704; J2795; J3010; J3373; J7050; J7120

== ENCOUNTER 2025-01-06 20:13 | Emergency (ER) | payer OTHER ==
[~2025-01-06] VITALS: Ht 190.5 cm; Wt 104.3 kg
[~2025-01-06 20:13] MED LIST changes: +ACET500 PO; +DOCU100 PO
[2025-01-06 20:40] LABS: BASOPHILS ABSOLUTE AUTO 0.03 K/mm3 (0.00-0.23); BASOPHILS PERCENT AUTO 0 % (0-2); EOSINOPHILS ABSOLUTE AUTO 0.07 K/mm3 (0.00-0.68); EOSINOPHILS PERCENT AUTO 1 % (0-6); Hematocrit 29.1 % (37.0-53.0); Hemoglobin 9.6 g/dL (13.5-17.5); IMMATURE GRAN ABSOLUTE AUTO 0.04 K/mm3 (0.00-0.10); IMMATURE GRAN PERCENT AUTO 1 % (0-1); LYMPHOCYTES ABSOLUTE AUTO 1.13 K/mm3 (0.84-5.20); LYMPHOCYTES PERCENT AUTO 14 % (21-46); MONOCYTES ABSOLUTE AUTO 0.93 K/mm3 (0.16-1.47); MONOCYTES PERCENT AUTO 11 % (4-13); Mean Corpuscular HGB Conc 33.0 g/dL (31.5-36.5); Mean Corpuscular Volume 90 fL (80-100); NEUTROPHILS ABSOLUTE AUTO 6.15 K/mm3 (1.96-9.15); NEUTROPHILS PERCENT AUTO 74 % (41-73); NRBC ABSOLUTE 0.00 K/mm3 (0.00-0.02); NRBC Auto 0.0 /100 WBC (0.0-0.2); Platelet Count 145 K/mm3 (150-400); RDW Coefficient Variation 13.3 % (11.7-14.2); RDW Standard Deviation 43.7 fL (35.1-46.3)
[2025-01-06 21:04] LABS: Alanine Aminotransfer (ALT/SGP 28.0 U/L (12-78); Albumin, Blood 3.2 g/dL (3.4-5.0); Albumin/Globulin Ratio 1.0 (0.8-1.8); Anion Gap 8.0 mmol/L (3-11); Aspartate Aminotrans (AST/SGOT 43.0 U/L (12-37); Bilirubin, Total 0.5 mg/dL (0.1-1.0); Blood Urea Nitrogen 33.0 mg/dL (8-24); CO2, Blood 24.0 mmol/L (21-32); Calcium, Blood 8.4 mg/dL (8.5-10.1); Chloride, Blood 111.0 mmol/L (98-108); Creatinine, Blood 1.79 mg/dL (0.60-1.20); Globulin, Blood 3.1 g/dL (2.2-4.0); Glucose, Blood 118.0 mg/dL (70-99); Potassium, Blood 4.8 mmol/L (3.5-5.5); Sodium, Blood 138.0 mmol/L (136-145); Total Protein, Blood 6.3 g/dL (6.4-8.2)
[2025-01-06] MEDS ORDERED: NS 1,000 ML IV SCH (21:35)
[2025-01-06 23:30] VITALS: BP 133/78
== END 2025-01-06 23:47 | disposition home or self-care (01) ==
LOC: ER 20:13
PROVIDERS: Student in an Organized Health Care Education/Training Program
DX: N17.9 Acute kidney failure, unspecified (principal); S00.91XA Abrasion of unspecified part of head, initial encounter; W01.198A Fall on same level from slipping, tripping and stumbling with subsequent striking against other object, initial encounter; Y92.000 Kitchen of unspecified non-institutional (private) residence as the place of occurrence of the external cause; I11.0 Hypertensive heart disease with heart failure; I50.9 Heart failure, unspecified; E78.5 Hyperlipidemia, unspecified; E11.9 Type 2 diabetes mellitus without complications; Z87.891 Personal history of nicotine dependence; D64.9 Anemia, unspecified
CPT/HCPCS: 70450; 72125; 80053; 85025; 93005; 93010; 96360; 99284-25; J7030

== ENCOUNTER → 2025-05-27 | Outpatient (CLI) | payer OTHER ==
[~2025-05-27] MED LIST changes: +MELATONIN10 M2 PO; +MEROPENEM IV; +VISBIOME 112.51 EACH PO
[2025-05-27 18:24] LABS: White Blood Cells, Urine TNTC /hpf (0-5)
== END | disposition home or self-care (01) ==
LOC: LAB 17:43 → LAB SHORT 17:43
PROVIDERS: Urology
DX: R35.1 Nocturia (principal)
CPT/HCPCS: 81015

== ENCOUNTER 2025-05-30 18:20 | Inpatient (IN) | payer OTHER ==
[~2025-05-30] VITALS: Ht 190.5 cm; Wt 97.2 kg
[~2025-05-30 18:20] MED LIST changes: -MELATONIN10 M2 PO; -MEROPENEM IV; -VISBIOME 112.51 EACH PO
[2025-05-30 19:28] LABS: Source, Urine Clean Catch
[2025-05-30 19:34] LABS: Bilirubin, Urine Neg (Neg); Color, Urine Yellow (P-Yellow); Glucose Qualitative, Urine Neg (Neg); Ketones, Urine Neg (Neg); Leukocyte Esterase, Urine 3+ (Neg); Protein, Urine 3+ (Neg); Specific Gravity, Urine 1.015 (1.003-1.022); Urobilinogen, Urine NORM (Normal)
[2025-05-30 19:40] LABS: BASOPHILS ABSOLUTE AUTO 0.03 K/mm3 (0.00-0.23); BASOPHILS PERCENT AUTO 0 % (0-2); EOSINOPHILS ABSOLUTE AUTO 0.02 K/mm3 (0.00-0.68); EOSINOPHILS PERCENT AUTO 0 % (0-6); Hematocrit 31.2 % (37.0-53.0); Hemoglobin 10.1 g/dL (13.5-17.5); IMMATURE GRAN ABSOLUTE AUTO 0.06 K/mm3 (0.00-0.10); IMMATURE GRAN PERCENT AUTO 1 % (0-1); LYMPHOCYTES ABSOLUTE AUTO 0.99 K/mm3 (0.84-5.20); LYMPHOCYTES PERCENT AUTO 10 % (21-46); MONOCYTES ABSOLUTE AUTO 0.66 K/mm3 (0.16-1.47); MONOCYTES PERCENT AUTO 7 % (4-13); Mean Corpuscular HGB Conc 32.4 g/dL (31.5-36.5); Mean Corpuscular Volume 88 fL (80-100); NEUTROPHILS ABSOLUTE AUTO 8.34 K/mm3 (1.96-9.15); NEUTROPHILS PERCENT AUTO 83 % (41-73); NRBC ABSOLUTE 0.00 K/mm3 (0.00-0.02); NRBC Auto 0.0 /100 WBC (0.0-0.2); Platelet Count 115 K/mm3 (150-400); RDW Coefficient Variation 14.7 % (11.7-14.2); RDW Standard Deviation 47.7 fL (35.1-46.3)
[2025-05-30 19:48] LABS: Red Blood Cells, Urine TNTC /hpf (0-2)
[2025-05-30 19:54] LABS: Alanine Aminotransfer (ALT/SGP 31.0 U/L (12-78); Albumin, Blood 3.1 g/dL (3.4-5.0); Albumin/Globulin Ratio 0.9 (0.8-1.8); Anion Gap 9.0 mmol/L (3-11); Aspartate Aminotrans (AST/SGOT 55.0 U/L (12-37); Bilirubin, Total 0.5 mg/dL (0.1-1.0); Blood Urea Nitrogen 48.0 mg/dL (8-24); CO2, Blood 25.0 mmol/L (21-32); Calcium, Blood 8.3 mg/dL (8.5-10.1); Chloride, Blood 104.0 mmol/L (98-108); Creatinine, Blood 1.9 mg/dL (0.60-1.20); Globulin, Blood 3.3 g/dL (2.2-4.0); Glucose, Blood 171.0 mg/dL (70-99); Magnesium, Blood 2.0 mg/dL (1.6-2.4); Potassium, Blood 4.2 mmol/L (3.5-5.5); Sodium, Blood 134.0 mmol/L (136-145); Total Protein, Blood 6.4 g/dL (6.4-8.2)
[2025-05-30] MEDS ORDERED: CefTRIAXone Sodium 1,000 MG in NS 100 ML IV ONE (20:20)
[2025-05-30] MEDS ORDERED: Lactobacil 2-S.Thermo-Bifido 1 1 Cap PO SCH (21:00)
[2025-05-30] MEDS ORDERED: Insulin Human Lispro 100 Units/ML 3ML Syringe SC SCH (21:00)
[2025-05-30] MEDS ORDERED: Ondansetron HCl 2 MG / ML 2ML Vial IV PRN (21:05)
[2025-05-30] MEDS ORDERED: FLU VACC TS2025(65UP)/MF59C/PF 45 MCG/0.5 ML SYRINGE IM SCH (21:10)
[2025-05-30 23:18] VITALS: BP 132/63
[2025-05-31 04:39] VITALS: BP 140/65
--- NOTE | 2025-05-31 06:34 | NUR ---
PT REMAINS A&O X4, HOWEVER HE IS SHIVERING WITH A FEVER OF 101.7, ADMINSTERED TYLENOL PER EMAR. ASIDE FROM THIS THE PATIENT HAS HAD A RESTFUL NIGHT WITH NO OTHER ACUTE EVENTS
--- NOTE | 2025-05-31 06:40 | NUR ---
ALERTED DR SILVA OF FEVER.
[2025-05-31 06:43] LABS: Hematocrit 32.2 % (37.0-53.0); Hemoglobin 10.6 g/dL (13.5-17.5); Mean Corpuscular HGB Conc 32.9 g/dL (31.5-36.5); Mean Corpuscular Volume 87 fL (80-100); NRBC ABSOLUTE 0.00 K/mm3 (0.00-0.02); NRBC Auto 0.0 /100 WBC (0.0-0.2); Platelet Count 106 K/mm3 (150-400); RDW Coefficient Variation 14.6 % (11.7-14.2); RDW Standard Deviation 47.3 fL (35.1-46.3)
[2025-05-31 07:07] LABS: Anion Gap 9.0 mmol/L (3-11); Blood Urea Nitrogen 46.0 mg/dL (8-24); CO2, Blood 26.0 mmol/L (21-32); Calcium, Blood 8.4 mg/dL (8.5-10.1); Chloride, Blood 105.0 mmol/L (98-108); Creatinine, Blood 1.84 mg/dL (0.60-1.20); Glucose, Blood 208.0 mg/dL (70-99); Magnesium, Blood 1.9 mg/dL (1.6-2.4); Potassium, Blood 4.0 mmol/L (3.5-5.5); Sodium, Blood 136.0 mmol/L (136-145)
[2025-05-31 07:45] VITALS: BP 124/60
[2025-05-31] MEDS ORDERED: Enoxaparin 40 MG/0.4 ML SYR SC SCH (09:00)
[2025-05-31 11:37] VITALS: BP 134/61
[2025-05-31 15:04] VITALS: BP 133/58
--- NOTE | 2025-05-31 18:00 | NUR ---
TOOK OVER PT CARE 1140. PT AO AND PLEASANT DOES AND SOME CONFUSION. PT LATER GOT THE CHILLS, BUT T98.5. REPORTED MILD BODY PAIN AND TREATES WITH TYLENOL. SHAKES RESOLVED AND PT REPORTED NOT FEELING COLD. BED ALARM IS IN PLACE WILL CONTINUE TO MONITOR.
[2025-05-31 20:28] VITALS: BP 126/64
[2025-05-31] MEDS ORDERED: CefTRIAXone Sodium 1,000 MG in NS 100 ML IV SCH (21:00)
[2025-05-31 23:52] VITALS: BP 144/68
--- NOTE | 2025-06-01 03:58 | NUR ---
SHIFT SUMMARY: PT IS AOX4 WITH SLIGHT CONFUSION. PT HAS PUREWIC IN PLACE. PT HAD A FEVER OF 102.4 AND WAS MEDICATED WITH TYLENOL PER EMAR. PT HAD AN EXTRA LARGE LOOSE BM AT THE START OF SHIFT. NO ACUTE CHANGES THIS SHIFT.
[2025-06-01 04:32] VITALS: BP 132/66
[2025-06-01 05:15] LABS: BASOPHILS ABSOLUTE AUTO 0.02 K/mm3 (0.00-0.23); BASOPHILS PERCENT AUTO 0 % (0-2); EOSINOPHILS ABSOLUTE AUTO 0.00 K/mm3 (0.00-0.68); EOSINOPHILS PERCENT AUTO 0 % (0-6); Hematocrit 31.2 % (37.0-53.0); Hemoglobin 10.3 g/dL (13.5-17.5); IMMATURE GRAN ABSOLUTE AUTO 0.03 K/mm3 (0.00-0.10); IMMATURE GRAN PERCENT AUTO 0 % (0-1); LYMPHOCYTES ABSOLUTE AUTO 0.70 K/mm3 (0.84-5.20); LYMPHOCYTES PERCENT AUTO 9 % (21-46); MONOCYTES ABSOLUTE AUTO 1.03 K/mm3 (0.16-1.47); MONOCYTES PERCENT AUTO 13 % (4-13); Mean Corpuscular HGB Conc 33.0 g/dL (31.5-36.5); Mean Corpuscular Volume 87 fL (80-100); NEUTROPHILS ABSOLUTE AUTO 6.14 K/mm3 (1.96-9.15); NEUTROPHILS PERCENT AUTO 78 % (41-73); NRBC ABSOLUTE 0.00 K/mm3 (0.00-0.02); NRBC Auto 0.0 /100 WBC (0.0-0.2); Platelet Count 106 K/mm3 (150-400); RDW Coefficient Variation 14.9 % (11.7-14.2); RDW Standard Deviation 47.7 fL (35.1-46.3)
[2025-06-01 05:36] LABS: Alanine Aminotransfer (ALT/SGP 40.0 U/L (12-78); Albumin, Blood 2.9 g/dL (3.4-5.0); Albumin/Globulin Ratio 0.9 (0.8-1.8); Anion Gap 6.0 mmol/L (3-11); Aspartate Aminotrans (AST/SGOT 53.0 U/L (12-37); Bilirubin, Total 0.3 mg/dL (0.1-1.0); Blood Urea Nitrogen 50.0 mg/dL (8-24); CO2, Blood 26.0 mmol/L (21-32); Calcium, Blood 8.2 mg/dL (8.5-10.1); Chloride, Blood 105.0 mmol/L (98-108); Creatinine, Blood 1.95 mg/dL (0.60-1.20); Globulin, Blood 3.3 g/dL (2.2-4.0); Glucose, Blood 223.0 mg/dL (70-99); Potassium, Blood 3.4 mmol/L (3.5-5.5); Sodium, Blood 134.0 mmol/L (136-145); Total Protein, Blood 6.2 g/dL (6.4-8.2)
[2025-06-01] MEDS ORDERED: Insulin Human Lispro 100 Units/ML 3ML Syringe SC SCH (07:30)
[2025-06-01] MEDS ORDERED: NS 250 ML IV PRN (07:50)
[2025-06-01 07:55] VITALS: BP 133/77
[2025-06-01] MEDS ORDERED: Piperacillin/Tazobactam Sod 3.375 GM in NS 100 ML IV SCH (08:00)
[2025-06-01] MEDS ORDERED: CefTRIAXone Sodium 2,000 MG in NS 100 ML IV SCH (08:00)
[2025-06-01] MEDS ORDERED: Cefepime HCl 2,000 MG in NS 100 ML IV SCH (09:00)
[2025-06-01] MEDS ORDERED: Ipratropium/Albuterol SulF 2.5-0.5MG/3 ML Amp INH PRN (10:00)
[2025-06-01] MEDS ORDERED: Ipratropium/Albuterol SulF 2.5-0.5MG/3 ML Amp INH ONE (10:00)
[2025-06-01] MEDS ORDERED: Meropenem 2,000 MG in NS 250 ML IV SCH (12:00)
--- NOTE | 2025-06-01 14:53 | NUR ---
Pt. is sitting up in a chair and welcomes my visit. Pt. 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 Facilitated a life review and considered matters of rayna and belief. Pt. 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 Pt. verbalized the imprtant significance ministry relationships have had in his life and displayed evidence of encouragement and a lightened mood. Prayed with the Pt. Pt. verbalized gratiude for the spiritual care visit and requested that this chapalin update two of his friends with his current status.
[2025-06-01 15:47] VITALS: BP 107/49
[2025-06-01 21:02] VITALS: BP 134/70
[2025-06-02 04:03] VITALS: BP 124/61
--- NOTE | 2025-06-02 05:32 | NUR ---
NO ACUTE CHANGES, RA, IV ABX, INCONTINENT OF URINE, AND REFUSED STOOL SOFTENER WITH PM MEDS.
[2025-06-02 06:05] LABS: BASOPHILS ABSOLUTE AUTO 0.02 K/mm3 (0.00-0.23); BASOPHILS PERCENT AUTO 0 % (0-2); EOSINOPHILS ABSOLUTE AUTO 0.11 K/mm3 (0.00-0.68); EOSINOPHILS PERCENT AUTO 1 % (0-6); Hematocrit 31.2 % (37.0-53.0); Hemoglobin 10.0 g/dL (13.5-17.5); IMMATURE GRAN ABSOLUTE AUTO 0.04 K/mm3 (0.00-0.10); IMMATURE GRAN PERCENT AUTO 1 % (0-1); LYMPHOCYTES ABSOLUTE AUTO 1.17 K/mm3 (0.84-5.20); LYMPHOCYTES PERCENT AUTO 13 % (21-46); MONOCYTES ABSOLUTE AUTO 1.24 K/mm3 (0.16-1.47); MONOCYTES PERCENT AUTO 14 % (4-13); Mean Corpuscular HGB Conc 32.1 g/dL (31.5-36.5); Mean Corpuscular Volume 87 fL (80-100); NEUTROPHILS ABSOLUTE AUTO 6.17 K/mm3 (1.96-9.15); NEUTROPHILS PERCENT AUTO 70 % (41-73); NRBC ABSOLUTE 0.00 K/mm3 (0.00-0.02); NRBC Auto 0.0 /100 WBC (0.0-0.2); Platelet Count 121 K/mm3 (150-400); RDW Coefficient Variation 15.0 % (11.7-14.2); RDW Standard Deviation 48.0 fL (35.1-46.3)
[2025-06-02 06:37] LABS: Anion Gap 10.0 mmol/L (3-11); Blood Urea Nitrogen 45.0 mg/dL (8-24); CO2, Blood 23.0 mmol/L (21-32); Calcium, Blood 8.5 mg/dL (8.5-10.1); Chloride, Blood 109.0 mmol/L (98-108); Creatinine, Blood 1.58 mg/dL (0.60-1.20); Glucose, Blood 136.0 mg/dL (70-99); Potassium, Blood 3.9 mmol/L (3.5-5.5); Sodium, Blood 138.0 mmol/L (136-145)
[2025-06-02 07:52] VITALS: BP 138/67
--- NOTE | 2025-06-02 11:02 | NUR ---
[facility] RECEIVED NEW ORDER FOR WELBUTRIN 400MG. WELLBUTRIN SR 400MG IS 2.6667 TABLET. CALLED [facility] AND CLARIFIED DOSEAGE. [facility] DOES NOT CARRY DOSEAGE ABLE TO DO 400MG. ORDER CHANGED BY PHARMACIST. CARE ONGOING.
[2025-06-02] MEDS ORDERED: Meropenem 2,000 MG in NS 250 ML IV SCH (16:00)
--- NOTE | 2025-06-02 18:35 | NUR ---
NOTE PT A/O. PLAN TO TRANSFER TO THE [facility] TOMORROW. SIA STACY PLACED IN ANTICIPATION OF HIS TRANSFER FOR ANTIBIOTIC THERAPY. PT TOOK A SHOWER WITH SET UP. TOLERATED WELL. VSS. BLOOD SUGARS COVERED PER S/S. PT MEDICATED WITH TYLENOL FOR HIS RIGHT HIP DISCOMFORT ONCE. HE HAS DENEID FURTHER NEED. EATING WELL. MULTIPLE BM. BOWEL CARE HELD. CARE ONGOING.
[2025-06-02 20:26] VITALS: BP 137/66
[2025-06-02 21:20] LABS: SARS-Cov-2 (COVID-19) PCR, MMC NEGATIVE (NEGATIVE)
[2025-06-02 23:13] VITALS: BP 148/74
[2025-06-03 03:02] VITALS: BP 145/65
--- NOTE | 2025-06-03 04:57 | NUR ---
PT HAD RESTFUL NIGHT, STATED HE HADN'T SLEPT IN SEVERAL NIGHTS, GAVE TRAZADONE WHICH HELPED, PT STATES HE'S SLEPT WELL TONIGHT. STILL ON IV ABX THROUGH POWERGLIDE IV. NO ACUTE CHANGES OVERNIGHT.
[2025-06-03 06:20] LABS: BASOPHILS ABSOLUTE AUTO 0.02 K/mm3 (0.00-0.23); BASOPHILS PERCENT AUTO 0 % (0-2); EOSINOPHILS ABSOLUTE AUTO 0.22 K/mm3 (0.00-0.68); EOSINOPHILS PERCENT AUTO 3 % (0-6); Hematocrit 28.6 % (37.0-53.0); Hemoglobin 9.3 g/dL (13.5-17.5); IMMATURE GRAN ABSOLUTE AUTO 0.10 K/mm3 (0.00-0.10); IMMATURE GRAN PERCENT AUTO 1 % (0-1); LYMPHOCYTES ABSOLUTE AUTO 1.56 K/mm3 (0.84-5.20); LYMPHOCYTES PERCENT AUTO 19 % (21-46); MONOCYTES ABSOLUTE AUTO 1.11 K/mm3 (0.16-1.47); MONOCYTES PERCENT AUTO 13 % (4-13); Mean Corpuscular HGB Conc 32.5 g/dL (31.5-36.5); Mean Corpuscular Volume 87 fL (80-100); NEUTROPHILS ABSOLUTE AUTO 5.37 K/mm3 (1.96-9.15); NEUTROPHILS PERCENT AUTO 64 % (41-73); NRBC ABSOLUTE 0.00 K/mm3 (0.00-0.02); NRBC Auto 0.0 /100 WBC (0.0-0.2); Platelet Count 128 K/mm3 (150-400); RDW Coefficient Variation 15.2 % (11.7-14.2); RDW Standard Deviation 48.8 fL (35.1-46.3)
[2025-06-03 06:38] LABS: Alanine Aminotransfer (ALT/SGP 39.0 U/L (12-78); Albumin, Blood 2.2 g/dL (3.4-5.0); Albumin/Globulin Ratio 0.7 (0.8-1.8); Anion Gap 6.0 mmol/L (3-11); Aspartate Aminotrans (AST/SGOT 32.0 U/L (12-37); Bilirubin, Total 0.3 mg/dL (0.1-1.0); Blood Urea Nitrogen 34.0 mg/dL (8-24); CO2, Blood 25.0 mmol/L (21-32); Calcium, Blood 8.3 mg/dL (8.5-10.1); Chloride, Blood 115.0 mmol/L (98-108); Creatinine, Blood 1.27 mg/dL (0.60-1.20); Globulin, Blood 3.3 g/dL (2.2-4.0); Glucose, Blood 172.0 mg/dL (70-99); Potassium, Blood 4.2 mmol/L (3.5-5.5); Sodium, Blood 142.0 mmol/L (136-145); Total Protein, Blood 5.5 g/dL (6.4-8.2)
[2025-06-03 07:35] VITALS: BP 143/70
[2025-06-03] MEDS ORDERED: MELATONIN10 M2 PO (09:15)
[2025-06-03] MEDS ORDERED: MEROPENEM IV (09:16)
[2025-06-03] MEDS ORDERED: VISBIOME 112.51 EACH PO (09:16)
--- NOTE | 2025-06-03 10:50 | NUR ---
DISCHARGE NOTE 1010: [facility] TO THE [facility]. GAVE REPORT TO MOISES GAN. PATIENT DISCHARGED WITH POWERGLIDE IN PLACE. HARD SCRIPT PLACED IN DISCHARGE POCKET. BELONGINGS RETURN TO PATIENT. DISCHARGE POCKET GIVEN TO TRANSPORT. PATIENT WHEELED OUT OF ROOM VIA WHEELCHAIR BY TRANSPORT. AOX4, PO TOLERATING AND VOINDING.
== END 2025-06-03 10:10 | DRG 871 ==
LOC: ER 18:20 → MEDS 20:50 → ERHOLD 20:50 → MEDS 23:08 → ENPENDDIS 06-03 09:10 → MEDS 06-03 10:10
PROVIDERS: Nurse Practitioner Acute Care; Student in an Organized Health Care Education/Training Program; ADMIT Student in an Organized Health Care Education/Training Program
DX: A41.50 Gram-negative sepsis, unspecified (principal); G92.8 Other toxic encephalopathy; I50.33 Acute on chronic diastolic (congestive) heart failure; N39.0 Urinary tract infection, site not specified; N17.9 Acute kidney failure, unspecified; I13.0 Hypertensive heart and chronic kidney disease with heart failure and stage 1 through stage 4 chronic kidney disease, or unspecified chronic kidney disease; Z16.12 Extended spectrum beta lactamase (ESBL) resistance; R65.20 Severe sepsis without septic shock; M79.7 Fibromyalgia; G25.81 Restless legs syndrome; F32.A Depression, unspecified; E78.5 Hyperlipidemia, unspecified; N40.0 Benign prostatic hyperplasia without lower urinary tract symptoms; E11.65 Type 2 diabetes mellitus with hyperglycemia; E11.22 Type 2 diabetes mellitus with diabetic chronic kidney disease; N18.2 Chronic kidney disease, stage 2 (mild); D63.1 Anemia in chronic kidney disease; G47.00 Insomnia, unspecified; J44.9 Chronic obstructive pulmonary disease, unspecified; E87.6 Hypokalemia; Z90.49 Acquired absence of other specified parts of digestive tract
CPT/HCPCS: 36415; 71045; 76770; 80048; 80053; 81001; 82550; 82947; 83605; 83735; 83880; 84484; 85025; 85027; 87040; 87077; 87086; 87186; 93306; 94640; 94664; 94760; 96361; 96365; 97110; 97116; 97161; 97530; 99285-25; A9270; J0692; J0696; J1650; J1938; J2185; J7050; J7120; U0002